=== PATIENT | male | born 1995 | race Caucasian/White ===

== ENCOUNTER 2019-08-02 14:11 | Emergency (ER) | payer OTHER ==
[~2019-08-02] VITALS: Ht 167.6 cm; Wt 72.6 kg
[2019-08-02 14:16] VITALS: BP 160/79; Ht 167.6 cm; Wt 72.6 kg
== END 2019-08-02 14:43 | disposition other institution (70) ==
LOC: ED 14:11 → EDSEX 14:11 → ED 14:43
DX: Z02.89 Encounter for other administrative examinations (principal)